=== PATIENT | female | born 1935 | race Caucasian/White ===

== ENCOUNTER 2016-10-13 18:47 | Emergency (ER) | payer MEDICARE, BC, OTHER ==
[2016-10-13 15:48] LABS: BASOPHILS 0.6 %; BASOPHILS ABSOLUTE 0.04 10/3/uL (0.0-0.16); EOSINOPHILS 1.2 %; EOSINOPHILS ABSOLUTE 0.09 10/3/uL (0.0-0.53); ER CBC TAT 0 Hrs 08 Mins; HEMATOCRIT 35.8 % (36.0-48.0); HEMOGLOBIN 12.2 g/dL (12.0-16.0); IMMATURE GRANULOCYTES 0.3 %; IMMATURE GRANULOCYTES ABSOLUTE 0.02 10/3/uL (0.0-0.11); LYMPHOCYTES 37.5 %; LYMPHOCYTES ABSOLUTE 2.72 10/3/uL (0.67-4.30); MEAN CORPUS HGB CONC 34.1 g/dL (32.0-36.0); MEAN CORPUSCULAR HEMOGLOB 30.3 pg (26.0-34.0); MEAN CORPUSCULAR VOLUME 89.1 fL (80-100); MEAN PLATELET VOLUME 10.4 fL (9.2-13.0); MONOCYTES 5.8 %; MONOCYTES ABSOLUTE 0.42 10/3/uL (0.21-1.20); NEUTROPHILS 54.6 %; NEUTROPHILS ABSOLUTE 3.96 10/3/uL (2.02-8.40); PLATELET COUNT 280 10/3/uL (150-400); RBC DISTRIBUTION WIDTH 12.8 % (12.0-16.0); RED CELL COUNT 4.02 10/6/uL (4.0-5.6); WHITE BLOOD CELLS 7.3 10/3/uL (4.5-10.5)
[2016-10-13 15:51] LABS: MANUAL DIFF NO %
[2016-10-13 16:03] LABS: CALCIUM, SERUM 8.8 MG/DL (8.5-10.4); CHEST PAIN PROFILE TAT 0 Hrs 23 Mins; CHLORIDE, SERUM 106 MMOL/L (96-112); CO2 (CARBON DIOXIDE) 28 MMOL/L (24-34); CREATININE 1.24 MG/DL (0.55-1.02); GFR AFRICAN AMERICAN 48 ML/MIN (>=60); GFR NON AFRICAN AMERICAN 42 ML/MIN (>=60); GLUCOSE, SERUM 216 MG/DL (60-99); POTASSIUM, SERUM 4.4 MMOL/L (3.5-5.3); SODIUM, SERUM 139 MMOL/L (135-148); TROPONIN I <0.02 NG/ML (<0.05)
[2016-10-13 16:04] LABS: BUN (BLOOD UREA NITROGEN) 12 MG/DL (6-23)
[2016-10-13 16:07] LABS: INTERNATIONAL NORMAL RATI 1.3 UNITS (-); PARTIAL THROMBO TIME 27.5 SEC (22.5-37.2)
[2016-10-13 16:09] LABS: PROTIME (NOT ORD) 15.7 SEC (12.0-14.5)
[~2016-10-13 18:47] MED LIST: ARICEPT10 PO; ASAB PO; BACDS PO; BION TEARS OPH; C5 PO; CEFT5 PO; COREG3 PO; COREG6 PO; DIAZEPAM 1 MG/ML PO; DOMPERIDONE XX; DSS PO; ELIQUIS 5 MG TAB5 MG PO; ENABLEX7.5 PO; FOLIC PO; HUMALOG SC; HUMALOGPEN SC; IMDUR30 PO; IMDUR60 PO; LANTUS SC; LEVEMIR SC; LIPITOR40 PO; LISINOPRIL40 MG PO; LOP25 PO; LORT7 PO; MCZ125 PO; MCZ25 PO; NEUR300 PO; NITROSTAT0.4 MG SL; NORCO1 TA2 PO; NORV5 PO; NOVOLOG SC; PAIN T; PLAVIX PO; PROTONIX PO; PROTONIX20 MG PO; RYTHMOL150 MG PO; RYTHMOL225 MG PO; STOOL SOFTEN100 MG PO; STOOL SOFTEN240 MG PO; SUCR PO; V2 PO; V5 PO; VESICARE5 PO; VICODIN ES1 TAB PO; ZESTRIL20 MG PO; ZOCOR40 PO; [UNRECOGNIZED DRUG - REMARK]
[2016-10-17] MEDS ORDERED: ARICEPT10 PO (19:06)
[2016-10-17] MEDS ORDERED: MCZ125 PO (19:06)
[2016-10-17] MEDS ORDERED: ELIQUIS 5 MG TAB5 MG PO (19:07)
[2016-10-17] MEDS ORDERED: FOLIC PO (19:07)
[2016-10-17] MEDS ORDERED: LIPITOR40 PO (19:07)
[2016-10-17] MEDS ORDERED: L20 PO (19:07)
[2016-10-17] MEDS ORDERED: COZ25 PO (19:07)
[2016-10-17] MEDS ORDERED: CORDARONE PO (19:07)
[2016-10-17] MEDS ORDERED: LANTUS SC (19:08)
[2016-10-17] MEDS ORDERED: IMDUR30 PO (19:08)
[2016-10-17] MEDS ORDERED: PROTONIX PO (19:08)
[2016-10-17] MEDS ORDERED: COREG6 PO (19:08)
== END 2016-10-13 19:30 | disposition home or self-care (01) ==
LOC: ER 18:47
PROVIDERS: Nurse Practitioner
DX: J40 Bronchitis, not specified as acute or chronic (principal); I25.2 Old myocardial infarction; I10 Essential (primary) hypertension; E11.9 Type 2 diabetes mellitus without complications; I48.91 Unspecified atrial fibrillation; Z88.5 Allergy status to narcotic agent; Z95.0 Presence of cardiac pacemaker; Z88.8 Allergy status to other drugs, medicaments and biological substances; Z79.82 Long term (current) use of aspirin; Z79.4 Long term (current) use of insulin; Z79.899 Other long term (current) drug therapy
CPT/HCPCS: 71020; 80048; 83735; 84484; 85025; 85610; 85730; 93005; 99285

== ENCOUNTER 2016-10-17 19:21 | Inpatient (IN) | payer MEDICARE, BC ==
--- NOTE | ~2016-10-17 | DS ---
Discharge Summary [facility] [address] [place]. [address] NAME: EDELMIRA DICKENS : 39 STATUS : ADM Maxi PAT#: [id number] AGE: 80 ADM/REG DATE : 10/17/16 MR#: [id number] REPORT SERV DATE: 10/20/16 DICTATED BY: MAULIK LITTLEJOHN DATE: 10/20/16 REPORT STATUS : Draft TRANSCRIBED BY: MODL DATE: 10/20/16 ADMISSION DATE: 10/17/2016 DISCHARGE DATE: 10/20/2016 CONDITION ON DISCHARGE: Stable. DISPOSITION: Discharged to home. ADVICE ON DISCHARGE: To follow up with networking engineer as scheduled. DIAGNOSES ON DISCHARGE: 1. Dizziness and abnormal jerky movements that were noted by - seizures have been ruled out. The EEG is normal, and shows no seizure activity, and in addition to that, the neurologist has evaluated the patient and no seizure activity is reported or noted at this time. Dizziness has also resolved at this time. We are suspecting that the dizziness could be a combination of orthostatic hypotension from multiple medications that lowers the blood pressure, and also probably early diabetic neuropathy. Both of these have been addressed, and please see below for her new home medication list. She will also be given Neurontin 100 mg p.o. q.h.s. for the diabetic neuropathy. 2. Uncontrolled diabetes mellitus with a hemoglobin A1c greater than 10. Most likely because the patient is taking Lantus insulin when she feels like it. This has been changed, and the patient is advised to take 15 units of Lantus subcutaneously at night every day as a scheduled dose. 3. Status post pacer placement - the patient's last 2D echocardiogram that was done in 2015 was completely normal. Now, the patient's rhythm is paced, but she still continues to be on Eliquis for paroxysmal atrial fibrillation. This will be continued. 4. Gastroesophageal reflux disease, stable. 5. Dizziness - resolved. BRIEF HOSPITAL COURSE: Ms Edelmira Dickens is a 80-year-old female patient, who came in because found that she had jerky abnormal movements that he noticed, and got worried that these could be seizures. We admitted the patient to make sure that this was not a new onset stroke as the patient also had dizziness. Hence, the patient was admitted to rule out seizures, as the patient has a pacer and MRI of the brain could not be done, but a CT scan of the brain and CT angiogram of the head and neck did not show any evidence of any acute stroke. Her dizziness also slowly resolved. The patient has been taking meclizine at home, and she said that this was helping some. Neurology was consulted as we were suspecting seizure disorders in this patient. The patient underwent an EEG, and this showed no evidence of any seizure activity. Hence, her dizziness was most likely because of neuropathy from diabetes, and taking too many medications to lower her blood pressure/cardiac med adjustment. Anyhow, she has had no more jerky movements as the has described in the last three days that she has been in the hospital, and hence, she is being discharged home in stable condition. As mentioned above, the most recent labs that I have on this patient include the following; the patient has had Discharge Summary [address] [address] NAME: EDELMIRA DICKENS : 39 STATUS : ADM Maxi PAT#: [id number] AGE: 80 ADM/REG DATE : 10/17/16 MR#: [id number] REPORT SERV DATE: 10/20/16 DICTATED BY: MAULIK LITTLEJOHN DATE: 10/20/16 REPORT STATUS : Draft TRANSCRIBED BY: STACIA DATE: 10/20/16 the following lab so far on 10/19/2016. Her electrolytes are normal. BUN is 11, creatinine is 0.7. WBC count is 5.8, hemoglobin and hematocrit are 11.4 and 33.6. Her troponin I has always been normal suggesting that there was no acute cardiac event going on. TSH is normal too. Hence, the patient is being sent home on the following medications now. Specifically her Imdur has been stopped. Her Lasix has also been stopped. She was taking 20 mg of Lasix a day, and this has been stopped; however, the patient needs to continue her Cozaar, given the history of diabetes, and also heart issues. Next, she will also continue Coreg that she takes at home on a regular basis, and in addition to that, I am giving her Neurontin 100 mg that she will take at nighttime for the neuropathy. The patient will continue Protonix 40 mg a day. She has been advised to take Lantus insulin 15 units subcutaneously at nighttime scheduled. She will continue to take Antivert 12.5 mg p.o. b.i.d. p.r.n., and of course, continue the Cozaar 25 mg a day. She does not need any more levofloxacin that she was prescribed before as an outpatient. The patient will also continue her pain medication Pent[place] 7.5/325 p.o. b.i.d. p.r.n. only for pain. Hence, I am sending this patient home, and I have spent about 40 minutes in coordinating discharge care of this patient. DICTATED BY: Siva See/STACIA Maulik Littlejohn M.D. / [id number] CC: Siva See M.D.
--- NOTE | ~2016-10-17 | CN ---
Consultation Report [facility] [address] [place]. [address] NAME: JERRY DICKENS : 37 STATUS : ADM Maxi PAT#: [id number] AGE: 80 ADM/REG DATE : 10/17/16 MR#: [id number] REPORT SERV DATE: 10/18/16 DICTATED BY: JEANCARLOS MCDANIEL DATE: 10/18/16 REPORT STATUS : Draft TRANSCRIBED BY: MODMick DATE: 10/18/16 NEUROLOGICAL EVALUATION-CONSULTATION DATE OF CONSULTATION: 10/18/2016 REASON FOR NEUROLOGICAL EVALUATION: Episodes of shaking, rule out seizures versus CVA. HISTORY OF PRESENT ILLNESS: This is a 80-year-old female with known history of atrial fibrillation status post pacemaker placement with history of long-standing diabetes mellitus, history of coronary artery disease, and hypertension who was admitted on 10/17/2016 with complaints of episodes of disorientation associated with shaking. The patient stated that in the past few days, she has had increased amount of headaches and back pain. She has been taking her hydrocodone as she normally does "up to 3 times a day." The patient has history of chronic back pain which has been treated with narcotic medications. The patient denied having history of seizures. The patient's stated that several nights prior to admission, he had noted the patient having some jerking movements while she was asleep. The patient stated that she has no recollection of having any episodes of jerking and had no recollection of recent events described by patient's . She stated that she would have intermittent jerking when she stood up from the chair and appeared slightly dazed. Her systems developer had decreased antihypertensive medication since her blood pressure was running in systolic [address] scan of the head was reviewed and compared to the study of 2015. The study of 2015 showed no acute changes, however, chronic microvascular changes were noted including slightly larger area seen in the left MCA territory distribution, left posterior frontal temporal parietal region. MEDICATIONS: Medications prior to admission included apixaban 5 mg p.o. b.i.d., atorvastatin 40 mg at bedtime, amiodarone 200 mg p.o. daily, carvedilol 6.25 mg p.o. daily, donepezil 10 mg daily, folic acid 1 mg p.o. daily, Insulin Levemir 10 units subcu at bedtime, isosorbide mononitrate 30 mg p.o. daily, and pantoprazole 40 mg p.o. before breakfast. PAST MEDICAL HISTORY: As mentioned above, the patient's past medical history is significant for insulin-dependent diabetes mellitus in the past 10 years, complicated with peripheral neuropathy and probably retinopathy, history of coronary artery disease status post CABG, implant of the pacemaker, history of paroxysmal atrial fibrillation, history of anxiety, hypertension, episodes of hypotension as mentioned above. SOCIAL HISTORY: The patient lives with her of 50 years. She in the past four years lost two of her children. Her son at age 50 apparently was diagnosed with GI bleed and in the emergency room with a ruptured colon. The patient's daughter suffered multiple stroke at age 50, three years ago. The patient herself has lost significant amount of weight, admitted to being depressed, however, denied having suicidal ideations or having any desire to see a therapist. The patient stopped smoking 40 years ago. She said she does not drink alcohol. Consultation Report [address] [address] NAME: JERRY DICKENS : 37 STATUS : ADM Maxi PAT#: [id number] AGE: 80 ADM/REG DATE : 10/17/16 MR#: [id number] REPORT SERV DATE: 10/18/16 DICTATED BY: JEANCARLOS MCDANIEL DATE: 10/18/16 REPORT STATUS : Draft TRANSCRIBED BY: STACIA DATE: 10/18/16 REVIEW OF SYSTEMS: On review of systems, the patient has had chronic back pain, chronic headaches, chronic leg pain, peripheral neuropathy pain, dependence on narcotic medications. Recently, the patient was treated for bronchitis and had been on Levaquin for several days. The patient stated that she takes hydrocodone 7.5 mg/325 mg b.i.d. or t.i.d. p.r.n. FAMILY HISTORY: Significant for history of coronary artery disease, hypertension, and stroke as mentioned above. ALLERGIES: TO CODEINE, PHENERGAN, MORPHINE, AND STADOL. SURGICAL HISTORY: Included the pacemaker implant, cataract surgery, cholecystectomy, appendectomy, several cardiac catheterization, epidural steroid injection, bilateral total knee replacement. PHYSICAL EXAMINATION: VITAL SIGNS: Show blood pressure of 108/60, pulse was 68, respirations 16, temperature was 98.2. HEAD AND NECK: Showed head to be normocephalic. There was no evidence of trauma. Auscultation of the neck showed no evidence of bruits. EYE EXAM: Sclerae were not icteric. Conjunctivae pink. ENT EXAM: Airway appeared patent. Mallampati class II to III. NECK: Supple. There is no Kernig or Brudzinski. Cervical range of motion was not impaired. There was no lymphadenopathy, no thyromegaly. No JVD. CHEST: Symmetrical. LUNGS: Clear. HEART: Auscultation of her heart; regular S1 and S2. I did not appreciate any murmurs, rubs, status post pacemaker placement. ABDOMEN: Soft, nontender. EXTREMITIES: Showed no clubbing or cyanosis. There is no peripheral edema. Peripheral pulses were intact and palpable throughout. SKIN: Clear. NEUROLOGICAL: Mental status exam: The patient was alert, oriented to self, time, and place. Her speech was fluent. There was no evidence of aphasia or dysarthria. Thought content and mood appeared appropriate. The patient's who was at her bedside provided additional history. He was extremely hard of hearing. The interview was difficult and prolonged as a result of it. The patient was quite vehement about possible suggestion that she may have taken too much of her hydrocodone since she was suffering with increased pain. She stated that for years she has been treating for her back pain with medications that she is currently on. She does not follow with chronic pain management. The patient's speech was fluent. There was no evidence of aphasia or dysarthria. Thought content and mood appeared appropriate. Cranial nerve examination II-XII: Visual craft on confrontation were intact. Funduscopic exam shows status post cataract surgery and mild pallor of the optic disc. No hemorrhages Consultation Report [address] [place]. [address] NAME: JERRY DICKENS : 39 STATUS : ADM Maxi PAT#: [id number] AGE: 80 ADM/REG DATE : 10/17/16 MR#: [id number] REPORT SERV DATE: 10/18/16 DICTATED BY: JEANCARLOS MCDANIEL DATE: 10/18/16 REPORT STATUS : Draft TRANSCRIBED BY: MODL DATE: 10/18/16 or exudates noted, AV nicking or arterial narrowing was present. Pupils were 2.5 mm, reacted to light and accommodation. Extraocular movements were full. There was no nystagmus. No limitation of upward and downward gaze was noted. Facial sensation, muscles of mastication, muscles of facial expression show no evidence of asymmetry or weakness. Hearing was intact bilaterally. Lower cranial nerves were intact. Tongue was midline. No atrophy or fibrillations were noted. Palate elevated symmetrically. Sternocleidomastoid and trapezius muscles were normal. Motor Exam: Muscle bulk and tone were normal. Strength appeared intact throughout 5/5. Deep tendon reflexes were 1+ over 2 in upper extremities, 0/2 in lower extremities. Babinski signs were not elicitable. Sensory Exam: To pinprick, light touch, and vibration was decreased in distal lower extremities with sensation increasing above the knees. Position sense was mildly impaired. Cerebellar exam of jcxldd-kg-adrm and xwsp-ha-bgaz appeared intact. No ataxia noted. Rapid alternating movements were slightly clumsy on the left hand testing. Gait was not tested at this time. The patient stated she was having too much back pain to ambulate. LABORATORY STUDIES: Sodium 140, potassium 3.4, chloride 108, BUN 13, creatinine 1.03. Glomerular filtration rate 60, glucose 129, calcium 8.9, magnesium 1.6. Phosphorus 3.2. Procalcitonin 0.05, normal low. Magnesium 1.6-borderline normal. Phosphorus 3.2, albumin 3, CPK 91, folate 32.2. Vitamin B12 364. Troponin 0.02. CT scan of the head showed no evidence of acute changes. It was a stroke protocol. CTA of the brain and neck on admission in the emergency room showed soft plaque incorporated into left plaque suggesting some increased vulnerability. Subclavian and vertebral arteries were normal. Category [address] intracranial was normal. No post-contrast abnormality seen. IMPRESSION AND RECOMMENDATIONS: 1. Episodes of "shaking" and mild disorientation described by the patient's have occurred while the patient was asleep and also upon standing from the sitting position. Orthostatic hypotension should be considered in this patient since she until recently had been on three anti-hypertensive medications. As per description, the patient's blood pressure has been low. The patient's CT scan of the head suggest presence of old ischemic changes-infarcts in left MCA territory although small detectable on CT, may suggest presence of underlying focus of physiological disturbance and potentially could suggest presence of epileptogenic focus. Therefore, I could not exclude the patient having recurrent seizures triggered by other circumstances which include hypotension and/or medications taken in excess or withdrawing from the medications. 2. The patient has history of chronic pain, has been on hydrocodone chronically. The patient laboratory studies difficult to interpret since the patient denied taking Consultation Report [address] [place]. [address] NAME: JERRY DICKENS : 39 STATUS : ADM Maxi PAT#: [id number] AGE: 80 ADM/REG DATE : 10/17/16 MR#: [id number] REPORT SERV DATE: 10/18/16 DICTATED BY: JEANCARLOS MCDANIEL DATE: 10/18/16 REPORT STATUS : Draft TRANSCRIBED BY: STACIA DATE: 10/18/16 alcohol and drug screen shows alcohol presence at the level of 260. This chronic pain panel also shows presence of increased amounts of hydrocodone in her system. 3. Use of narcotic medications predisposes the older patients to have central apnea. It is not uncommon for central apnea to cause alterations in heart rate, heart rhythm, and blood pressure. Therefore, it is quite possible the patient may have had episodes of bradycardia, hypotension while asleep. I recommend for Cardiology to interrogate the patient's pacemaker for any malfunction. An outpatient polysomnography study is recommended. 4. The patient has multiple risk factors for a stroke which include atrial fibrillation with recurrence of paroxysmal atrial fibrillation despite the pacemaker, coronary artery disease, strong family history of strokes, hypertension with episodes of hypotension, hyperlipidemia, insulin-dependent diabetes mellitus. The patient is currently on apixaban which I would recommend to continue although difficult to estimate the levels of medication in her system. It appears that the patient had an episode in September of paroxysmal atrial fibrillation despite taking apixaban. At that time, aspirin was added to her regimen. 5. Severe diabetic peripheral neuropathy. The patient has increased risk of falling and injury in view of decreased perception in her distal legs. The patient was advised to take extra caution with walking especially in a dark room and was advised to turn the lights on when she gets up at night to go to the restroom. The position sense and sensation distally in her legs was markedly impaired. I discussed with the patient my recommendation for her to follow with outpatient Neurology Service. An ambulatory EEG can be obtained to monitor the patient for recurrent seizures or presence of seizures if EEG run for 48-72 hours preferably. I would advise the patient not to drive and not to operate moving machinery, climbing heights, ladders, take baths when home alone, and to follow seizure precautions. I will investigate whether the patient pacemaker is MRI compatible, obtain MRI to better delineate the presence of past and recent strokes. Thank you for allowing me to participate in this patient's care. KIRSTIN/STACIA Jeancarlos Mcdaniel MD / [id number] CC: Siva See M.D.
--- NOTE | ~2016-10-17 | EEG ---
Electroencephalogram [facility] [id number] [place]. [address] NAME: JERRY DICKENS : 39 STATUS : ADM Maxi PAT#: [id number] AGE: 80 ADM/REG DATE : 10/17/16 MR#: [id number] REPORT SERV DATE: 10/19/16 DICTATED BY: JEANCARLOS MCDANIEL DATE: 10/19/16 REPORT STATUS : Draft TRANSCRIBED BY: STACIA DATE: 10/19/16 INTERPRETING PHYSICIAN: Jeancarlos Mcdaniel MD-Neurology. REASON FOR EEG: Episodes of shaking, rule out seizures. 23 surface electrodes, 10-20 international placement was used. The patient was noted to be awake, drowsy, and asleep throughout the study. Photic stimulation was performed. The background activity consisted of moderate voltage, 8 to 9 cycles per second, located in the posterior head regions during the awake portion of the recording. Large amount of low- voltage beta range activity was noted scattered throughout, predominantly seen in frontal and central regions. This most likely represents a medication effect. No paroxysmal or epileptiform activity was seen during this study. During drowsiness and light sleep, no significant asymmetry of cerebral activity was present. The patient's personnel monitor showed sinus bradycardia, heart rate of approximately 58 beats per minute. Photic stimulation did not produce significant abnormality. There was no driving response. IMPRESSION: THIS EEG SHOWS NO EVIDENCE OF PAROXYSMAL OR EPILEPTIFORM FEATURES. LARGE AMOUNT OF LOW-VOLTAGE BETA RANGE ACTIVITY MOST LIKELY REPRESENTS MEDICATION EFFECT. CLINICAL CORRELATION IS RECOMMENDED. JOSA/STACIA Jeancarlos Mcdaniel MD / [id number] CC: Siva See M.D.
--- NOTE | ~2016-10-17 | HP ---
History And Physical [address] [place]. [address] NAME: JERRY DICKENS : 39 STATUS : ADM Maxi PAT#: [id number] AGE: 80 ADM/REG DATE : 10/17/16 MR#: [id number] REPORT SERV DATE: 10/17/16 DICTATED BY: MINERVA MERRILL DATE: 10/17/16 REPORT STATUS : Draft TRANSCRIBED BY: MODL DATE: 10/17/16 DATE OF ADMISSION: 10/17/2016 CHIEF COMPLAINT: Right facial droop with difficulty speaking. HISTORY OF PRESENT ILLNESS: Obtained from the patient as well as the patient's and daughter present at the bedside and emergency room documents, also prior medical records available to us were thoroughly reviewed. According to the information available, the patient is a pleasant 80-year-old white woman with a complex past medical history including hypertension, coronary artery disease, atrial fibrillation, status post permanent pacemaker placement as well as known acoustic neuroma who was brought into the emergency room because of her neurologic complaints. 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 On presentation to the emergency room, symptoms were resolved and the patient has been on baseline. The patient had several visits to her primary providers, also to the emergency room, was recently on 10/13/2016, at that time for what was diagnosed as "bronchitis." Note that at the time of discharge on 10/13/2016, the patient was prescribed Levaquin 750 mg p.o. daily for 10 days and a cough syrup that contains dextromethorphan and Phenergan as well as an MDI albuterol. The patient also seems that was noticed to be hypotensive by her primary care provider and at the beginning of the week, she was taken off "three blood pressure medications," apparently due to low blood pressure. Nevertheless, in the emergency room, due to the above presentation, the above complaint triggered full stroke workup with stat CT scan of the head/brain as well as CTA of the neck and brain, which were negative for acute findings as per preliminary report to the emergency room department. Also during the exam by emergency room physician, even though no part of the initial complaint on review of the system, the patient had tender upper part of the abdomen with examination and palpation and therefore, a CT scan of the abdomen and pelvis also was ordered, results still pending. Because of the above presentation and findings, the patient was referred to the Hospitalist Service for further management and evaluation. Presently, the patient is comfortable in the stretcher. Denies headache. Denies any phono or photophobia. Denies any recent fever or chills. Denies any recent loss of consciousness, head trauma. She stated that several days ago when she was in her primary care provider's office to be evaluated while she was transported with a wheelchair, she had the "swimmy/swinging sensation," unclear that was dizziness or any other symptoms reported to her primary care provider at that time. It is possible at that time when the patient also was reportedly hypotensive and was changed or discontinued on some of her medications for blood pressure control. There was no report of palpitations or chest pain. No dyspnea on exertion. No paroxysmal nocturnal dyspnea. No increased pedal edema. Note that the patient and family were very "alert" and anxious about possible strokes as the patient's younger daughter has apparently several years ago as a result of recurrent strokes. There is no report of diplopia. The initial report of change in speech has not been confirmed by other family members besides the patient's and denied by the patient. The patient's describes jerky movements on her upper and lower extremity generalized just two or three at a time with no particular worsening or relieving factors or prodromal symptoms. No loss of consciousness or altered mental status. No incontinence. No tongue History And Physical [address] [address] NAME: JERRY DICKENS : 39 STATUS : ADM Maxi PAT#: [id number] AGE: 80 ADM/REG DATE : 10/17/16 MR#: [id number] REPORT SERV DATE: 10/17/16 DICTATED BY: MINERVA MERRILL DATE: 10/17/16 REPORT STATUS : Draft TRANSCRIBED BY: MODMick DATE: 10/17/16 biting or other seizure-like symptoms. No postictal state reported either. It is uncertain if the symptoms actually started after her last visit to the emergency room on 10/13/2016, and when she was started on new medications as the patient's stated that she might have had some jerky movements before the ER visit, which the patient stated that there was nothing after and she did not have it last week. PAST MEDICAL HISTORY: Significant for coronary artery disease with non-flow limiting coronary artery disease by cardiac catheterization and apparently recent cardiovascular workup in 05/2016 for chest pain; history of arrhythmia with atrial fibrillation, status post dual-chamber pacemaker for tachy-brian arrhythmia syndrome, the patient presently on amiodarone and Eliquis; history of anxiety; history of mild cognitive impairment, apparently recently started on Aricept for several months now; history of hypertension, but apparently episodes of hypotension and medication being decreased or discontinued as per the patient; history of known cerebral tumor, 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 PAST SURGICAL HISTORY: Significant for bilateral total knee replacement, dual-chamber pacemaker placement, cholecystectomy, hemorrhoidectomy, bilateral cataract surgery. Apparently, the patient had kidney stone removed and stent placed in 2006, several right kidney arthroscopy, bilateral cataract surgery, cholecystectomy, appendectomy, several cardiac catheterizations, several epidural steroid injections, D and C x2, right foot surgery, bilateral carpal tunnel release surgery. ALLERGIES: TO PHENERGAN, CODEINE, MORPHINE, AND STADOL. HOME MEDICATIONS: According to the list provided, the patient is supposed to take Aricept 10 mg p.o. daily, Antivert 12.5 mg p.o. b.i.d. p.r.n. dizziness, Lipitor 40 mg p.o. at bedtime, Lasix 20 mg p.o. daily, Eliquis 5 mg p.o. b.i.d., folic acid 1 mg p.o. daily, losartan 25 mg p.o. daily, amiodarone 200 mg p.o. daily, Protonix 40 mg p.o. daily, Coreg 6.25 mg p.o. b.i.d., Imdur 30 mg p.o. daily, Lantus unknown amount of units taking "as per sliding scale" when "she feels like she needs it," hydrocodone 7.5/325 one p.o. b.i.d. p.r.n. pain chronic medications. Recently prescribed medications on 10/13/2016; Levaquin 750 mg p.o. daily, albuterol MDI inhaler two puffs q.4 hours p.r.n. shortness of breath, and a cough syrup, which has promethazine and dextromethorphan 5 mL p.o. q.4 hours p.r.n. cough. FAMILY HISTORY: Significant for hypertension, significant for strokes. Her younger daughter from recurrent strokes. History of coronary artery disease. SOCIAL HISTORY: , retired. Had three children, two of them , the only remaining daughter at bedside. Denies tobacco abuse, she quit smoking 40 years ago. Denies alcohol abuse. Denies illicit recreational drug abuse. History And Physical [address] [address] NAME: JERRY DICKENS : 39 STATUS : ADM Maxi PAT#: [id number] AGE: 80 ADM/REG DATE : 10/17/16 MR#: [id number] REPORT SERV DATE: 10/17/16 DICTATED BY: MINERVA MERRILL DATE: 10/17/16 REPORT STATUS : Draft TRANSCRIBED BY: MODL DATE: 10/17/16 REVIEW OF SYSTEMS: As per H and P, otherwise negative in all review of systems. Please note, the comprehensive review of system was obtained and pertinent positives were including in the H and P. PHYSICAL EXAMINATION: GENERAL: Pleasant, anxious, no acute distress presently, apparently recovered neurologic symptoms. HEENT: Bilateral cataracts. Extraocular movements intact. Throat, mild erythema. No exudate. No signs of tenderness. Atraumatic and normocephalic. NECK: Supple. No JVD. No bruits. No thyromegaly. No lymph nodes. LUNGS: Bilateral air entry with few dry bibasilar crackles, occasionally cough clearing up the crackles and rhonchi. No wheezing. Left subclavicular pacemaker in place. HEART: Positive S1, S2. Regular rate and rhythm. Positive mitral regurgitation, murmur at the apex. ABDOMEN: Positive bowel sounds. Soft, nontender. No guarding. No hepatosplenomegaly. EXTREMITIES: With decreased range of motion. Osteoarthritic changes. No clubbing. No cyanosis. No edema. No calf tenderness. +2 pulses. NEUROLOGIC: Alert and oriented x3. Grossly nonfocal. Mild generalized weakness. Anxious, but otherwise appropriate mood and affect. Cranial nerves II through XII grossly intact. Motor strength 5/5 symmetrical and bilateral. There is no facial asymmetry noticed. No pronator drift due to coordination. Deep tendon reflexes 2/2 symmetrical and bilateral. BACK: With decreased range of motion. No focal localized tenderness. No CVA tenderness. SKIN: No bruises. No rashes. No lacerations. SIGNIFICANT LABORATORY DATA: CT scan of the brain without contrast as well as the CTA of the neck and brain/head with contrast showed no acute findings by preliminary reports from emergency room. Chest x-ray (personal reading) showed no acute infiltrate. EKG (personal reading) showed paced rhythm atrial, no acute ST-elevation. CT scan of the abdomen and pelvis pending at this moment. White cell count 7, hemoglobin 11.7, platelet count 243. PT 14.7. Sodium 142, potassium 3.7, chloride 108, bicarb 28, BUN 16, creatinine 1.46, glucose 142, calcium 8.4. Other liver function tests within normal limits except albumin 3.1, which is slightly low. Troponin I less than 0.02. Lipase was 71, which is within normal limits. ASSESSMENT AND PLAN AND PROBLEM LIST: The patient is a pleasant 80-year-old woman who presented with initial symptoms suggestive of possible cerebrovascular accident, admitted with possible transient ischemic attack and myoclonic jerky movements. IMPRESSION: 1. Neurologic problem:. 2. A. Transient ischemic attack with no cerebrovascular disease and microvascular ischemic disease. 3. B. Myoclonic jerky movements, uncertain etiology, possible secondary to medication adverse reactions. 4. C. Mild cognitive impairment. 5. D. Anxiety. 6. E. Left acoustic neuroma. History And Physical [address] [address] NAME: JERRY DICKENS : 39 STATUS : ADM Maxi PAT#: [id number] AGE: 80 ADM/REG DATE : 10/17/16 MR#: [id number] REPORT SERV DATE: 10/17/16 DICTATED BY: MINERVA MERRILL DATE: 10/17/16 REPORT STATUS : Draft TRANSCRIBED BY: STACIA DATE: 10/17/16 For all the above, the patient has been admitted on the Hospitalist Service under preliminary setting with neurologic checks. We are going to continue to follow up with Neurology consult, already contacted from the emergency room. Obtain an EEG. Continue present medications for now except potentially etiologic medications newly started such as Phenergan and dextromethorphan and Levaquin. Check TSH, vitamin B12, and folate as correction will greatly improve her quality of life. Reinforce need for a better and tighter diabetic control. 1. Cardiovascular:. 2. A. Coronary artery disease, known, presently stable. 3. B. Arrhythmia with history of atrial fibrillation, likely paroxysmal atrial fibrillation, status post permanent pacemaker placement in the past. 4. C. Essential hypertension, but with reported recent episode of hypotension, medications being adjusted. For all the above, we are going to continue the patient's Eliquis, the patient's amiodarone. We are going to repeat CK, troponin I and repeat EKG. We are going to try to obtain records from the patient's primary care provider, Dr. Solorzano with regard to medication changes and documented hypotensive episodes. Low threshold for Cardiology consultation with Dr. 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. 1. Endocrinologic problem. 2. A. Diabetes type 2, uncontrolled, insulin dependent with complications. 3. B. Hyperlipidemia, mixed type. Continue Lipitor. Provide low cholesterol diet. We are going to start small dose of Levemir and use sliding scale as well. 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 We are going to monitor urinary output. Monitor BUN and creatinine. Avoid nephrotoxic agents. Provide gentle IV hydration for now. 4. Pulmonary:. 5. A. Obstructive sleep apnea by history, apparently stable, not using CPAP. 6. B. Recent treatment for bronchitis on 10/13/2016. We are going to hold antibiotics for now and use only p.r.n. bronchodilators. 7. Osteoarthritis, osteoporosis, deconditioning, debilitation, degenerative disk disease, and chronic low back pain. We are going to continue the patient's chronic hydrocodone as per home dose and schedule. Consider physical therapy evaluation. 8. Gastroesophageal reflux disease, hiatal hernia with abdominal CT scan still pending due to reported tenderness by physical exam by emergency room physician. To my examination, pretty benign physical exam and normal liver function test, normal white cell count, and lipase, we are going to follow up on the results of the CT scan. Continue Protonix/PPI as per home dose and schedule. 9. Chronic anticoagulation. Eliquis to be continued at this moment and reinforce compliance. PROGNOSIS: Moderately good for this admission. Discussed with the patient, the patient's family. Questions were answered in full. Please note, the patient is a full code at this moment as discussed with the patient at bedside. Please note also the written H and P, and written orders and instructions. History And Physical [address] [address] NAME: JERRY DICKENS : 39 STATUS : ADM Maxi PAT#: [id number] AGE: 80 ADM/REG DATE : 10/17/16 MR#: [id number] REPORT SERV DATE: 10/17/16 DICTATED BY: MINERVA MERRILL ION DATE: 10/17/16 REPORT STATUS : Draft TRANSCRIBED BY: STACIA DATE: 10/17/16 RF/STACIA Minerva Merrill M.D. / [id number] CC: Viviana Chowdhury M.D. Jostin Solorzano M.D. Shawna Rodgers M.D. Anupam Tavera M.D., Ph.D, F.A.C.C. Riley Mckenzie M.D.
[2016-10-17 19:01] LABS: BASOPHILS 0.4 %; BASOPHILS ABSOLUTE 0.03 10/3/uL (0.0-0.16); EOSINOPHILS 1.2 %; EOSINOPHILS ABSOLUTE 0.08 10/3/uL (0.0-0.53); ER CBC TAT 0 Hrs 16 Mins; HEMATOCRIT 35.4 % (36.0-48.0); HEMOGLOBIN 11.7 g/dL (12.0-16.0); IMMATURE GRANULOCYTES 0.1 %; IMMATURE GRANULOCYTES ABSOLUTE 0.01 10/3/uL (0.0-0.11); LYMPHOCYTES 37.7 %; LYMPHOCYTES ABSOLUTE 2.62 10/3/uL (0.67-4.30); MEAN CORPUS HGB CONC 33.1 g/dL (32.0-36.0); MEAN CORPUSCULAR HEMOGLOB 29.6 pg (26.0-34.0); MEAN CORPUSCULAR VOLUME 89.6 fL (80-100); MEAN PLATELET VOLUME 10.3 fL (9.2-13.0); MONOCYTES 6.6 %; MONOCYTES ABSOLUTE 0.46 10/3/uL (0.21-1.20); NEUTROPHILS ABSOLUTE 3.75 10/3/uL (2.02-8.40); PLATELET COUNT 243 10/3/uL (150-400); RBC DISTRIBUTION WIDTH 13.2 % (12.0-16.0); RED CELL COUNT 3.95 10/6/uL (4.0-5.6)
[2016-10-17 19:02] LABS: MANUAL DIFF NO %
[2016-10-17 19:14] LABS: INTERNATIONAL NORMAL RATI 1.2 UNITS (-); PARTIAL THROMBO TIME 26.3 SEC (22.5-37.2); PROTIME (NOT ORD) 14.7 SEC (12.0-14.5)
[2016-10-17 19:21] LABS: ALBUMIN 3.1 G/DL (3.5-5.0); CALCIUM, SERUM 8.4 MG/DL (8.5-10.4); CHLORIDE, SERUM 108 MMOL/L (96-112); CO2 (CARBON DIOXIDE) 28 MMOL/L (24-34); CREATININE 1.46 MG/DL (0.55-1.02); GFR AFRICAN AMERICAN 40 ML/MIN (>=60); GFR NON AFRICAN AMERICAN 34 ML/MIN (>=60); POTASSIUM, SERUM 3.7 MMOL/L (3.5-5.3); SGOT(AST) 15 U/L (5-40); SGPT(ALT) 14 U/L (5-65); SODIUM, SERUM 142 MMOL/L (135-148); TOTAL BILIRUBIN 0.8 MG/DL (0-1.2); TOTAL PROTEIN 6.1 G/DL (6.0-8.5); TROPONIN I <0.02 NG/ML (<0.05)
[~2016-10-17 19:21] MED LIST changes: +CORDARONE PO; +COZ25 PO; +L20 PO
[2016-10-17 19:22] LABS: ALBUMIN 3.2 G/DL (3.5-5.0); ALKALINE PHOSPHATASE 70 U/L (45-117); BUN (BLOOD UREA NITROGEN) 16 MG/DL (6-23); DIRECT BILIRUBIN < 0.1 MG/DL (0.0-0.4); GLUCOSE, SERUM 142 MG/DL (60-99); INDIRECT BILIRUBIN(NOT ORDER) 0.9 MG/DL (0.1-0.9); SGOT(AST) 16 U/L (5-40); SGPT(ALT) 14 U/L (5-65); TOTAL PROTEIN 6.1 G/DL (6.0-8.5)
[2016-10-17] MEDS ORDERED: LEVAQUIN750 MG PO (20:18)
[2016-10-17] MEDS ORDERED: PROVHFA INH (20:18)
[2016-10-17] MEDS ORDERED: [UNRECOGNIZED DRUG - OTHER] PO (20:23)
[2016-10-17] MEDS ORDERED: PROMETHAZINE PO (20:23)
[2016-10-17] MEDS ORDERED: NORCO1 TA2 PO (20:51)
[2016-10-18 05:31] LABS: BASOPHILS 0.5 %; BASOPHILS ABSOLUTE 0.03 10/3/uL (0.0-0.16); EOSINOPHILS 1.5 %; EOSINOPHILS ABSOLUTE 0.09 10/3/uL (0.0-0.53); HEMATOCRIT 35.3 % (36.0-48.0); HEMOGLOBIN 11.7 g/dL (12.0-16.0); IMMATURE GRANULOCYTES 0.2 %; IMMATURE GRANULOCYTES ABSOLUTE 0.01 10/3/uL (0.0-0.11); LYMPHOCYTES 51.3 %; LYMPHOCYTES ABSOLUTE 3.05 10/3/uL (0.67-4.30); MEAN CORPUS HGB CONC 33.1 g/dL (32.0-36.0); MEAN CORPUSCULAR HEMOGLOB 29.5 pg (26.0-34.0); MEAN CORPUSCULAR VOLUME 88.9 fL (80-100); MEAN PLATELET VOLUME 10.2 fL (9.2-13.0); MONOCYTES 7.1 %; MONOCYTES ABSOLUTE 0.42 10/3/uL (0.21-1.20); NEUTROPHILS 39.4 %; NEUTROPHILS ABSOLUTE 2.35 10/3/uL (2.02-8.40); PLATELET COUNT 221 10/3/uL (150-400); RBC DISTRIBUTION WIDTH 13.1 % (12.0-16.0); RED CELL COUNT 3.97 10/6/uL (4.0-5.6)
[2016-10-18 05:33] LABS: MANUAL DIFF NO %
[2016-10-18 06:15] LABS: PROCALCITONIN <0.05 ng/mL (<0.5)
[2016-10-18 06:22] LABS: BUN (BLOOD UREA NITROGEN) 13 MG/DL (6-23); CALCIUM, SERUM 8.9 MG/DL (8.5-10.4); CHLORIDE, SERUM 108 MMOL/L (96-112); CO2 (CARBON DIOXIDE) 26 MMOL/L (24-34); CREATININE 1.03 MG/DL (0.55-1.02); FREE T4 1.45 NG/DL (0.76-1.46); GFR AFRICAN AMERICAN 60 ML/MIN (>=60); GFR NON AFRICAN AMERICAN 52 ML/MIN (>=60); GLUCOSE, SERUM 129 MG/DL (60-99); PHOSPHORUS, SERUM 3.2 MG/DL (2.5-4.5); POTASSIUM, SERUM 3.5 MMOL/L (3.5-5.3); SODIUM, SERUM 140 MMOL/L (135-148); TROPONIN I <0.02 NG/ML (<0.05)
[2016-10-18 06:26] LABS: CK-MB 2.3 NG/ML; CPK 91 U/L (0-200); FOLATE 32.2 NG/ML (>5.2)
[2016-10-19 06:08] LABS: ASCORBIC ACID (UR NOT ORDER) NEG (NEG); BILIRUBIN, URINE NEGATIVE (NEG); KETONE, URINE NEGATIVE (NEG); LEUKOCYTE ESTERASE(NOT OR TRACE (NEG); WBC (NOT ORDERED) (RFLEX) 5 (0-5)
[2016-10-19 06:59] LABS: BASOPHILS 0.3 %; BASOPHILS ABSOLUTE 0.02 10/3/uL (0.0-0.16); EOSINOPHILS 1.9 %; EOSINOPHILS ABSOLUTE 0.11 10/3/uL (0.0-0.53); HEMATOCRIT 33.6 % (36.0-48.0); HEMOGLOBIN 11.4 g/dL (12.0-16.0); LYMPHOCYTES ABSOLUTE 2.62 10/3/uL (0.67-4.30); MEAN CORPUS HGB CONC 33.9 g/dL (32.0-36.0); MEAN CORPUSCULAR HEMOGLOB 30.2 pg (26.0-34.0); MEAN CORPUSCULAR VOLUME 89.1 fL (80-100); MEAN PLATELET VOLUME 10.3 fL (9.2-13.0); MONOCYTES 6.5 %; MONOCYTES ABSOLUTE 0.38 10/3/uL (0.21-1.20); NEUTROPHILS 46.3 %; NEUTROPHILS ABSOLUTE 2.69 10/3/uL (2.02-8.40); PLATELET COUNT 206 10/3/uL (150-400); RBC DISTRIBUTION WIDTH 12.8 % (12.0-16.0); RED CELL COUNT 3.77 10/6/uL (4.0-5.6); WHITE BLOOD CELLS 5.8 10/3/uL (4.5-10.5)
[2016-10-19 07:06] LABS: BUN (BLOOD UREA NITROGEN) 11 MG/DL (6-23); CALCIUM, SERUM 8.8 MG/DL (8.5-10.4); CHLORIDE, SERUM 109 MMOL/L (96-112); CO2 (CARBON DIOXIDE) 26 MMOL/L (24-34); CREATININE 0.74 MG/DL (0.55-1.02); GFR AFRICAN AMERICAN 90 ML/MIN (>=60); GFR NON AFRICAN AMERICAN 78 ML/MIN (>=60); GLUCOSE, SERUM 149 MG/DL (60-99); POTASSIUM, SERUM 4.1 MMOL/L (3.5-5.3); SODIUM, SERUM 141 MMOL/L (135-148)
[2016-10-19 07:10] LABS: MANUAL DIFF NO %
[2016-10-20] MEDS ORDERED: LANTUS (13:59)
[2016-10-21 08:30] LABS: CREATININE 1.4 MG/DL (0.55-1.02)
== END 2016-10-20 17:01 | disposition home health service (06) | DRG 74 ==
LOC: ER 19:21 → 7NO 21:44
PROVIDERS: Emergency Medicine; Internal Medicine
DX: E11.42 Type 2 diabetes mellitus with diabetic polyneuropathy (principal); E11.65 Type 2 diabetes mellitus with hyperglycemia; I95.2 Hypotension due to drugs; R42 Dizziness and giddiness; T46.1X5A Adverse effect of calcium-channel blockers, initial encounter; Z79.4 Long term (current) use of insulin; Z95.0 Presence of cardiac pacemaker; I48.0 Paroxysmal atrial fibrillation; Z79.01 Long term (current) use of anticoagulants; K21.9 Gastro-esophageal reflux disease without esophagitis; Z79.891 Long term (current) use of opiate analgesic; G89.29 Other chronic pain
CPT/HCPCS: 70450; 70496; 70498; 71010; 74177; 80048; 80053; 80069; 80076; 81001; 82533; 82550; 82553; 82607; 82746; 82962; 83690; 83735; 84145; 84439; 84443; 84481; 84484; 85025; 85610; 85730; 93005; 95819; 97161-GP; 97165-GO; 99291; A9270-GY; G8978-CH-GP; G8979-CH-GP; G8980-CH-GP; G8987-CH-GO; G8988-CH-GO; G8989-CH-GO; J3475; Q9967